=== PATIENT | male | born 1980 ===

== ENCOUNTER 2024-04-19 07:32 | Emergency (ER) | payer OTHER, SELFPAY ==
[2024-04-19 07:34] VITALS: BP 117/85; PULSE 74; RESP 16; TEMP 37; O2SAT 97; BMI 25.1
[2024-04-19 08:05] VITALS: BP 126/94; PULSE 78; RESP 18; TEMP 36.5; O2SAT 99
--- NOTE | 2024-04-19 09:00 | ED.EYEPROB ---
HPI - Eye Problem General Chief complaint: Eye Problems Stated complaint: Work injury 04/18/24 Time Seen by Provider: 04/19/24 08:59 Source: patient and RN notes reviewed Mode of arrival: ambulatory Limitations: no limitations History of Present Illness ED Provider: Marge Johnson PA-C [facility] Narrative: This is a 43-year-old male, with no known medical problems, who presents emergency department with complaints of left eye foreign body sensation since yesterday. Patient states that he was grinding aluminum when suddenly he felt something fly into his left eye. He states that he flushed the area, states that he thought he got it out however later on yesterday evening like still present eye. Reports some pain and blurred vision. He does not wear contacts. He does wear eye protection at work. He denies any fevers or chills. His tetanus shot is up-to-date. No other complaints or concerns at this time. MD chief complaint: eye injury and foreign body Onset (ago): day(s) Onset description: sudden Duration: constant Location: left eye Eye Symptoms: redness and pain Place: home Mechanism: none Severity: moderate If Pain, Quality: aching Associated symptoms: none Treatments Prior to Arrival: irrigated eye Related Data Patient tetanus UTD: Yes Previous Rx's ?Medication ?Instructions ?Recorded erythromycin 5 mg/gram (0.5 %) eye 0.5 inch ophthalmic (eye) QID #3.5 04/19/24 ointment grams Allergies Allergy/AdvReac Type Severity Reaction Status Date / Time No Known Allergies Allergy Verified 04/19/24 07:35 Review of Systems Review of Systems: Yes all other systems are reviewed and are negative Constitutional: Constitutional: Reports as per [facility] Social History Social History Advance Directives: No Physical Exam Vital Signs: Vital Signs: Last Vital Signs Temp 97.7 F 04/19/24 09:48 Pulse 78 04/19/24 09:48 Resp 18 04/19/24 09:48 BP 126/94 H 04/19/24 09:48 Pulse Ox 99 04/19/24 09:48 O2 Del Method Room Air 04/19/24 09:48 BMI result Body Mass Index 25.1 Const: General: cooperative, comfortable and no acute distress Orientation/consciousness: patient oriented x3 Limitations: no limitations HEENT: Head: Yes normal to inspection, Yes normocephalic and Yes atraumatic Ears: hearing grossly normal bilaterally General nose exam: Normal external nose present Face and sinus: Yes normal facial exam Mouth: Normal oral and palatal mucosa present, oropharynx normal and moist mucous membranes Throat: Yes posterior oropharynx normal Eyes: Other: Left eye, with slight conjunctival injection, punctate foreign body noted at the 6 o'clock position overlying the iris. Ocular pressure 21 mmHg on the left. No pain with extraocular movements. Eyelid eversion performed, no foreign body General: appearance normal, both eyes and all related structures Eyelids: Yes eyelids normal Pupils: Equal, round and reactive pupils present EOM: EOMs intact bilaterally Neck: Neck: Yes normal visual inspection, Yes full ROM and Yes no lymphadenopathy Lymphatic: no lymphadenopathy noted Chest: Chest palpation & inspection: normal inspection of the chest Resp: Effort & Inspection: normal respiratory effort and able to speak in complete sentences Auscultation: clear to auscultation bilaterally, no crackles, no rales, no rhonchi and no wheezes Cardio: Rate: regular rate Rhythm: regular rhythm Heart sounds: S1 normal heart sound present and S2 normal heart sound present GI: Inspection: Yes normal to inspection Skin: General skin exam: no rashes or lesions noted Trauma: no lacerations or abrasions Wounds: no wounds Neuro: General: patient oriented x3 and moves all extremities Cranial nerves: Yes Equal, round and reactive pupils present Extrem: General: Yes normal to inspection Right upper extremity: normal to inspection Left upper extremity: normal to inspection Right lower extremity: normal to inspection Left lower extremity: normal to inspection Medications Administered Discontinued Medications Generic Name Dose Route Start Last Admin Trade Name Terri PRN Reason Stop Dose Admin Fluorescein Sodium 1 strip 04/19/24 09:00 04/19/24 09:36 Fluorescein Sodium Strip EYE-LEFT 04/19/24 09:01 1 strip ONCE ONE Administration Tetracaine HCl 1 drop 04/19/24 09:00 04/19/24 09:36 Tetracaine Hcl/Pf 0.5% Oph Samantha 4 Ml Drops EYE-LEFT 04/19/24 09:01 1 drop ONCE ONE Administration Medical Decision Making Medical Decision Making [facility] Narrative: This is a 43-year-old male who presents emergency department with complaints of left eye foreign body since yesterday. On arrival, vital signs within normal limits. Visual acuity performed no significant abnormalities. Foreign body was identified, multiple attempts for removal performed with cotton tip as well as 18 gauge needle, without any luck. Fluorescein stain revealing no other corneal abrasions or lacerations. I discussed this with patient, he needs to follow-up with Dr. Weller, will treat with erythromycin ointment, advised to call Dr. Weller today for follow-up. He understands and agrees with plan. Patient given return precautions. Patient stable for discharge Differential Diagnosis Differential Diagnoses: The differential diagnosis associated with the presentation includes Foreign body, corneal laceration, corneal ulceration, iritis Admission/Observation Consideration of admission/observation: Escalation of care including admission/observation considered Lab Data MDM Lab Attestation statement: I reviewed the patient's lab results. Radiology Impression Discussion of test interpretation with radiology: I have reviewed the radiologist's reading. External Record Review External record reviewed: Inpatient record, Office record, Outpatient record, Prior outpatient labs, Prior outpatient radiology, Primary care record and Outside ED record Procedures Procedure Narrative Procedure Narrative: Left eye was prepared using tetracaine and fluorescein, foreign body noted at the 6 o'clock position, attempted to remove using irrigation, cotton tip, and 18 gauge needle without any leaf or removal of the foreign body. Patient tolerated procedure well without any complications or concerns. No rust ring identified. No further injury to the eye identified. Discharge Plan Discharge Clinical Impression: Foreign body in eyeball, left, Corneal abrasion Patient Disposition: Home, Self-Care Instructions: Corneal Abrasion (ED) Additional Instructions: You were seen in the ER due to a foreign body in your eye. You were unable to remove this. You need to follow-up with Dr. Weller, call today to make an appointment. Please use antibiotic ointment as directed. If any new or worsening symptoms occur including but not limited to severe eye pain, please return for re-evaluation. Prescriptions: New erythromycin 5 mg/gram (0.5 %) ointment 0.5 inch ophthalmic (eye) QID Qty: 3.5 0RF Referrals: Manohar Weller [Physician] - Stand Alone Forms: Work/School Release Interventions: ED Discharge Assessment Last Done: 04/19/24 09:48 Discharge Date/Time: 04/19/24 09:49 Print Language: [place]
[2024-04-19] MEDS: Fluorescein Sodium STRIP 1 STRIP EYE-LEFT (09:36)
[2024-04-19] MEDS: Tetracaine HCl/PF 0.5% Oph Sol 4 ML DROPS 1 DROP EYE-LEFT (09:36)
[2024-04-19 09:48] VITALS: BP 126/94; PULSE 78; RESP 18; TEMP 36.5; O2SAT 99
== END 2024-04-19 09:49 | disposition home or self-care (01) ==
PROVIDERS: Emergency Provider Emergency Medicine
DX: S05.02XA Injury of conjunctiva and corneal abrasion without foreign body, left eye, initial encounter (principal); T15.82XA Foreign body in other and multiple parts of external eye, left eye, initial encounter; H57.12 Ocular pain, left eye; X58.XXXA Exposure to other specified factors, initial encounter; Y93.89 Activity, other specified; Y92.89 Other specified places as the place of occurrence of the external cause; Y99.8 Other external cause status
CPT/HCPCS: 99283